=== PATIENT | male | born 1960 | race Caucasian/White ===

== ENCOUNTER 2021-11-01 12:14 | Observation (INO) | payer BC ==
[2021-11-01] MEDS ORDERED: Sodium Chloride 0.9% 10 ML Syringe FLUSH PRN (12:35)
[2021-11-01] MEDS ORDERED: Sodium Chloride 0.9% 2.5 ML Syringe FLUSH PRN (12:35)
--- NOTE | 2021-11-01 12:53 | EDM.PDOC ---
ED HPI GENERAL MEDICAL PROBLEM - General Chief Complaint: Cardiovascular Problem Stated Complaint: DIFFICULTY BREATHING Time Seen by Provider: 11/01/21 12:20 - History of Present Illness INITIAL COMMENTS - FREE TEXT/NARRATIVE: 61-year-old male presents complaining of shortness of breath since last night. He states that he had a total knee replaced about a week ago and then drove for 5 hours from [place] where he had his surgical procedure. He started having shortness of breath last night. Shortness of breath is worse when he was laying in bed he first noticed and now notices that he is winded when he goes to the bathroom. Patient is vaccinated against Covid. Patient has no chest pain. There is no increase in leg swelling. No history of blood clots. Patient states that he felt warm but there has been no fevers or productive sputum. Patient was seen in the outside clinic and thought he had some fluid a little bit on his lungs and was sent here for further evaluation and treatment. moderate symptoms knee Pain Score (Numeric/FACES): 3 - Related Data Allergies Allergy/AdvReac Type Severity Reaction Status Date / Time meloxicam [From Mobic] Allergy Severe Other Verified 11/02/21 07:52 Home Meds: Home Meds Acetaminophen/Codeine [Tylenol with Codeine No.3 300MG/30MG] 1 tab PO Q4HR PRN 11/01/21 [History] Aspirin/Calcium Carbonate/Mag [Bufferin 325 mg Tablet] 325 mg PO DAILY 11/01/21 [History] Colchicine 0.6 mg PO DAILY 11/01/21 [History] Gabapentin [Neurontin] 200 mg PO BID 11/01/21 [History] allopurinoL [Zyloprim] 100 mg PO DAILY 11/01/21 [History] Past Medical History - Past Health History Medical/Surgical History: Denies Medical/Surgical History - Infectious Disease History Infectious Disease History: Reports: Chicken Pox - Past Surgical History Other Musculoskeletal Surgeries/Procedures:: left knee surgery ED ROS GENERAL - Review of Systems Review Of Systems: See Below Constitutional: Reports: Chills. Denies: Fever HEENT: Reports: No Symptoms Respiratory: Reports: Shortness of Breath, Wheezing. Denies: Cough Cardiovascular: Reports: Dyspnea on Exertion. Denies: Chest Pain GI/Abdominal: Reports: No Symptoms : Reports: No Symptoms Musculoskeletal: Reports: Other (Recent knee surgery) Skin: Reports: No Symptoms Neurological: Reports: No Symptoms Hematologic/Lymphatic: Reports: No Symptoms ED EXAM, GENERAL - Physical Exam Exam: See Below Free Text/Narrative:: CONSTITUTIONAL: well appearing in no acute distress SKIN: Warm, dry, and intact without rash HENT: Normocephalic, atraumatic, PULMONARY: Lateral rales left greater than right. No marked jugular venous distention. No wheeze CARDIOVASCULAR: regular rate, No murmur, rubs, or gallops GASTROINTESTINAL: soft, nondistended, nontender NEUROLOGIC: normal speech, II-XII intact. light touch/5/5 power equal and symmetric in upper and lower extremities without deficit MUSCULOSKELETAL: No calf swelling or edema PSYCHIATRIC: normal mood and affect #1 Interpretation Time: 12:24 EKG Interpretation Comments: 103, sinus tachycardia, nonspecific ST/T findings Course - Vital Signs Text/Narrative:: Differential diagnosis: CHF, COPD, PE, pneumonia, Covid, other Presents complaining of shortness of breath. Patient has significant risk facto rs for PE with recent knee replacement and travel. CT scan is negative for PE but does show evidence of CHF. Patient was complaining of some shortness of breath when he lied down and reevaluation does show perhaps there is some elevation in jugular venous distention. Patient given nitro and Lasix. Patient be admitted for diuresis, echo and continue treatment and management Last Recorded V/S: Last Vital Signs Temp 2.3 C L 11/01/21 23:25 Pulse 103 H 11/01/21 23:25 Resp 16 11/01/21 23:25 BP 122/75 11/01/21 23:25 Pulse Ox 95 11/01/21 23:25 - Orders/Labs/Meds Orders: Active Orders 24 hr Category Date Time Status Cardiac Monitoring [RC] . DIRECTED Care 11/01/21 12:35 Active Pulse Oximetry [RC] ASDIRECTED Care 11/01/21 12:35 Active Echo Comp wo Cont [US] Stat Exams 11/02/21 Ordered CULTURE BLOOD [BC] Stat Lab 11/01/21 13:00 Received CULTURE BLOOD [BC] Stat Lab 11/01/21 13:08 Received Sodium Chloride 0.9% [Saline Flush] Med 11/01/21 12:35 Active 10 ml FLUSH ASDIRECTED PRN Sodium Chloride 0.9% [Saline Flush] Med 11/01/21 12:35 Active 2.5 ml FLUSH ASDIRECTED PRN Blood Culture x2 Reflex Set [OM.PC] Stat Ot 11/01/21 12:37 Ordered Saline Lock Insert [OM.PC] Stat Ot 11/01/21 12:35 Ordered Medication Orders Acetaminophen/Codeine Phosphate (Acetaminophen/Codeine 300-30 Mg Tab) 1 tab PO Q4HR PRN PRN Reason: Pain Last Admin: 11/01/21 22:40 Dose: 1 tab Documented by: TRISH Acetaminophen/Codeine Phosphate (Acetaminophen/Codeine 300-30 Mg Tab) 2 tab PO Q4HR PRN PRN Reason: Pain Enoxaparin Sodium (Enoxaparin 40 Mg/0.4 Ml Syringe) 40 mg SUBCUT Q24H [facility] Last Admin: 11/01/21 18:05 Dose: 40 mg Documented by: JACKSON Furosemide (Furosemide 20 Mg/2 Ml Vial) 20 mg IVPUSH DAILY SPENCER Gabapentin (Gabapentin 100 Mg Cap) 200 mg PO BID [facility] Last Admin: 11/01/21 23:27 Dose: 200 mg Documented by: TRISH Sodium Chloride (Sodium Chloride 0.9% 10 Ml Syringe) 10 ml FLUSH ASDIRECTED PRN PRN Reason: Keep Vein Open Last Admin: 11/01/21 13:25 Dose: 10 ml Documented by: JACKSON Sodium Chloride (Sodium Chloride 0.9% 2.5 Ml Syringe) 2.5 ml FLUSH ASDIRECTED PRN PRN Reason: Keep Vein Open Last Admin: 11/01/21 13:24 Dose: 2.5 ml Documented by: JACKSON Labs: Laboratory Tests 11/01/21 11/01/21 11/01/21 Range/Units 12:24 12:24 12:24 WBC 11.45 H (4.0-11.0) K/uL RBC 4.90 (4.50-5.90) M/uL Hgb 14.6 (13.0-17.0) g/dL Hct 43.2 (38.0-50.0) % MCV 88.2 (80.0-98.0) fL MCH 29.8 (27.0-32.0) pg MCHC 33.8 (31.0-37.0) g/dL RDW Std Deviation 44.1 (28.0-62.0) fl RDW Coeff of Leann 14 (11.0-15.0) % Plt Count 542 H (150-400) K/uL MPV 10.20 (7.40-12.00) fL Neut % (Auto) 80.3 H (48.0-80.0) % Lymph % (Auto) 12.3 L (16.0-40.0) % [place] % (Auto) 5.9 (0.0-15.0) % Eos % (Auto) 1.2 (0.0-7.0) % Baso % (Auto) 0.3 (0.0-1.5) % Neut # (Auto) 9.2 H (1.4-5.7) K/uL Lymph # (Auto) 1.4 (0.6-2.4) K/uL [place] # (Auto) 0.7 (0.0-0.8) K/uL Eos # (Auto) 0.1 (0.0-0.7) K/uL Baso # (Auto) 0.0 (0.0-0.1) K/uL Nucleated RBC % 0.0 /100WBC Nucleated RBCs # 0 K/uL INR D-Dimer, Quantitative (0.0-0.50) mg/L FEU Sodium 137 (136-148) mmol/L Potassium 4.0 (3.5-5.1) mmol/L Chloride 102 (98-107) mmol/L Carbon Dioxide 24.9 (21.0-32.0) mmol/L BUN 15 (7.0-18.0) mg/dL Creatinine 1.4 H (0.8-1.3) mg/dL Est Cr Clr Drug Dosing 62.36 mL/min Estimated GFR (MDRD) 51.9 ml/min Glucose 100 (74-106) mg/dL Lactic Acid (0.4-2.0) mmol/L Calcium 8.7 (8.5-10.1) mg/dL Total Bilirubin 0.8 (0.2-1.0) mg/dL AST 28 (15-37) IU/L ALT 55 (14-63) IU/L Alkaline Phosphatase 65 (46-116) U/L Troponin I < 0.050 (0.000-0.056) ng/mL C-Reactive Protein 1.60 H (0.00-0.90) mg/dL B-Natriuretic Peptide 266 H (<100) PG/ML Total Protein 7.7 (6.4-8.2) g/dL Albumin 3.6 (3.4-5.0) g/dL Globulin 4.1 H (2.6-4.0) g/dL Albumin/Globulin Ratio 0.9 (0.9-1.6) Urine Color Urine Appearance Urine pH (5.0-8.0) Ur Specific [place] (1.001-1.035) Urine Protein (NEGATIVE) mg/dL Urine Glucose (UA) (NEGATIVE) mg/dL Urine Ketones (NEGATIVE) mg/dL Urine Occult Blood (NEGATIVE) Urine Nitrite (NEGATIVE) Urine Bilirubin (NEGATIVE) Urine Urobilinogen (<2.0) EU/dL Ur Leukocyte Esterase (NEGATIVE) Urine RBC (0-2/HPF) Urine WBC (0-5/HPF) Ur Epithelial Cells (NONE-FEW) Urine Bacteria (NEGATIVE) SARS-CoV-2 RNA (AMANDA) (NEGATIVE) 11/01/21 11/01/21 11/01/21 Range/Units 12:24 12:51 12:53 WBC (4.0-11.0) K/uL RBC (4.50-5.90) M/uL Hgb (13.0-17.0) g/dL Hct (38.0-50.0) % MCV (80.0-98.0) fL MCH (27.0-32.0) pg MCHC (31.0-37.0) g/dL RDW Std Deviation (28.0-62.0) fl RDW Coeff of Leann (11.0-15.0) % Plt Count (150-400) K/uL MPV (7.40-12.00) fL Neut % (Auto) (48.0-80.0) % Lymph % (Auto) (16.0-40.0) % [place] % (Auto) (0.0-15.0) % Eos % (Auto) (0.0-7.0) % Baso % (Auto) (0.0-1.5) % Neut # (Auto) (1.4-5.7) K/uL Lymph # (Auto) (0.6-2.4) K/uL [place] # (Auto) (0.0-0.8) K/uL Eos # (Auto) (0.0-0.7) K/uL Baso # (Auto) (0.0-0.1) K/uL Nucleated RBC % /100WBC Nucleated RBCs # K/uL INR 1.03 D-Dimer, Quantitative 5.15 H (0.0-0.50) mg/L FEU Sodium (136-148) mmol/L Potassium (3.5-5.1) mmol/L Chloride (98-107) mmol/L Carbon Dioxide (21.0-32.0) mmol/L BUN (7.0-18.0) mg/dL Creatinine (0.8-1.3) mg/dL Est Cr Clr Drug Dosing mL/min Estimated GFR (MDRD) ml/min Glucose (74-106) mg/dL Lactic Acid (0.4-2.0) mmol/L Calcium (8.5-10.1) mg/dL Total Bilirubin (0.2-1.0) mg/dL AST (15-37) IU/L ALT (14-63) IU/L Alkaline Phosphatase (46-116) U/L Troponin I (0.000-0.056) ng/mL C-Reactive Protein (0.00-0.90) mg/dL B-Natriuretic Peptide (<100) PG/ML Total Protein (6.4-8.2) g/dL Albumin (3.4-5.0) g/dL Globulin (2.6-4.0) g/dL Albumin/Globulin Ratio (0.9-1.6) Urine Color YELLOW Urine Appearance CLEAR Urine pH 5.5 (5.0-8.0) Ur Specific [place] >= 1.030 (1.001-1.035) Urine Protein NEGATIVE (NEGATIVE) mg/dL Urine Glucose (UA) NEGATIVE (NEGATIVE) mg/dL Urine Ketones 15 H (NEGATIVE) mg/dL Urine Occult Blood SMALL H (NEGATIVE) Urine Nitrite NEGATIVE (NEGATIVE) Urine Bilirubin SMALL H (NEGATIVE) Urine Urobilinogen 0.2 (<2.0) EU/dL Ur Leukocyte Esterase NEGATIVE (NEGATIVE) Urine RBC 0-5 (0-2/HPF) Urine WBC 0-5 (0-5/HPF) Ur Epithelial Cells RARE (NONE-FEW) Urine Bacteria NOT SEEN (NEGATIVE) SARS-CoV-2 RNA (AMANDA) NEGATIVE (NEGATIVE) 11/01/21 Range/Units 13:00 WBC (4.0-11.0) K/uL RBC (4.50-5.90) M/uL Hgb (13.0-17.0) g/dL Hct (38.0-50.0) % MCV (80.0-98.0) fL MCH (27.0-32.0) pg MCHC (31.0-37.0) g/dL RDW Std Deviation (28.0-62.0) fl RDW Coeff of Leann (11.0-15.0) % Plt Count (150-400) K/uL MPV (7.40-12.00) fL Neut % (Auto) (48.0-80.0) % Lymph % (Auto) (16.0-40.0) % [place] % (Auto) (0.0-15.0) % Eos % (Auto) (0.0-7.0) % Baso % (Auto) (0.0-1.5) % Neut # (Auto) (1.4-5.7) K/uL Lymph # (Auto) (0.6-2.4) K/uL [place] # (Auto) (0.0-0.8) K/uL Eos # (Auto) (0.0-0.7) K/uL Baso # (Auto) (0.0-0.1) K/uL Nucleated RBC % /100WBC Nucleated RBCs # K/uL INR D-Dimer, Quantitative (0.0-0.50) mg/L FEU Sodium (136-148) mmol/L Potassium (3.5-5.1) mmol/L Chloride (98-107) mmol/L Carbon Dioxide (21.0-32.0) mmol/L BUN (7.0-18.0) mg/dL Creatinine (0.8-1.3) mg/dL Est Cr Clr Drug Dosing mL/min Estimated GFR (MDRD) ml/min Glucose (74-106) mg/dL Lactic Acid 0.9 (0.4-2.0) mmol/L Calcium (8.5-10.1) mg/dL Total Bilirubin (0.2-1.0) mg/dL AST (15-37) IU/L ALT (14-63) IU/L Alkaline Phosphatase (46-116) U/L Troponin I (0.000-0.056) ng/mL C-Reactive Protein (0.00-0.90) mg/dL B-Natriuretic Peptide (<100) PG/ML Total Protein (6.4-8.2) g/dL Albumin (3.4-5.0) g/dL Globulin (2.6-4.0) g/dL Albumin/Globulin Ratio (0.9-1.6) Urine Color Urine Appearance Urine pH (5.0-8.0) Ur Specific [place] (1.001-1.035) Urine Protein (NEGATIVE) mg/dL Urine Glucose (UA) (NEGATIVE) mg/dL Urine Ketones (NEGATIVE) mg/dL Urine Occult Blood (NEGATIVE) Urine Nitrite (NEGATIVE) Urine Bilirubin (NEGATIVE) Urine Urobilinogen (<2.0) EU/dL Ur Leukocyte Esterase (NEGATIVE) Urine RBC (0-2/HPF) Urine WBC (0-5/HPF) Ur Epithelial Cells (NONE-FEW) Urine Bacteria (NEGATIVE) SARS-CoV-2 RNA (AMANDA) (NEGATIVE) Meds: Medications Generic Name Dose Route Start Last Admin Trade Name Freq PRN Reason Stop Dose Admin Acetaminophen/Codeine Phosphate 1 tab 11/01/21 22:10 11/01/21 22:40 Acetaminophen/Codeine 300-30 Mg Tab PO 1 tab Q4HR PRN Administration Pain Acetaminophen/Codeine Phosphate 2 tab 11/02/21 08:03 Acetaminophen/Codeine 300-30 Mg Tab PO Q4HR PRN Pain Enoxaparin Sodium 40 mg 11/01/21 17:45 11/01/21 18:05 Enoxaparin 40 Mg/0.4 Ml Syringe SUBCUT 40 mg Q24H SPENCER Administration Furosemide 20 mg 11/02/21 09:00 Furosemide 20 Mg/2 Ml Vial IVPUSH DAILY SPENCER Gabapentin 200 mg 11/01/21 22:15 11/01/21 23:27 Gabapentin 100 Mg Cap PO 200 mg BID SPENCER Administration Sodium Chloride 10 ml 11/01/21 12:35 11/01/21 13:25 Sodium Chloride 0.9% 10 Ml Syringe FLUSH 10 ml ASDIRECTED PRN Administration Keep Vein Open Sodium Chloride 2.5 ml 11/01/21 12:35 11/01/21 13:24 Sodium Chloride 0.9% 2.5 Ml Syringe FLUSH 2.5 ml ASDIRECTED PRN Administration Keep Vein Open Discontinued Medications Generic Name Dose Route Start Last Admin Trade Name Freq PRN Reason Stop Dose Admin Acetaminophen/Codeine Phosphate 1 tab 11/01/21 16:28 11/01/21 16:42 Acetaminophen/Codeine 300-30 Mg Tab PO 11/01/21 16:29 1 tab ONETIME ONE Administration Acetaminophen/Codeine Phosphate 1 tab 11/01/21 17:32 Acetaminophen/Codeine 300-30 Mg Tab PO Q6H PRN Pain Furosemide 20 mg 11/01/21 16:47 11/01/21 17:27 Furosemide 40 Mg/4 Ml Vial IVPUSH 11/01/21 16:48 20 mg NOW ONE Administration Iopamidol 100 ml 11/01/21 14:32 11/01/21 14:33 Iopamidol 755 Mg/Ml 500 Ml Multipack Bottle IVPUSH 11/01/21 14:33 100 ml ONETIME STA Administration Nitroglycerin 1 gm 11/01/21 16:47 11/01/21 17:27 Nitroglycerin 2% Oint 1 Gm Ud Packet TOP 11/01/21 16:48 1 gm ONETIME ONE Administration Tramadol HCl Confirm 11/02/21 06:09 Tramadol 50 Mg Tab Administered 11/02/21 06:10 Dose 50 mg .ROUTE .STK-MED ONE Departure - Departure Time of Disposition: 18:00 Disposition: Admitted As Inpatient 68 Clinical Impression: CHF (congestive heart failure) - Discharge Information Sepsis Event Note (ED) - Evaluation Sepsis Screening Result: No Definite Risk - My Orders Last 24 Hours: My Active Orders 11/01/21 12:35 Cardiac Monitoring [RC] . DIRECTED Pulse Oximetry [RC] ASDIRECTED Sodium Chloride 0.9% [Saline Flush] 10 ml FLUSH ASDIRECTED PRN Sodium Chloride 0.9% [Saline Flush] 2.5 ml FLUSH ASDIRECTED PRN Saline Lock Insert [OM.PC] Stat 11/01/21 12:37 Blood Culture x2 Reflex Set [OM.PC] Stat 11/01/21 13:00 CULTURE BLOOD [BC] Stat 11/01/21 13:08 CULTURE BLOOD [BC] Stat - Assessment/Plan Last 24 Hours: My Active Orders 11/01/21 12:35 Cardiac Monitoring [RC] . DIRECTED Pulse Oximetry [RC] ASDIRECTED Sodium Chloride 0.9% [Saline Flush] 10 ml FLUSH ASDIRECTED PRN Sodium Chloride 0.9% [Saline Flush] 2.5 ml FLUSH ASDIRECTED PRN Saline Lock Insert [OM.PC] Stat 11/01/21 12:37 Blood Culture x2 Reflex Set [OM.PC] Stat 11/01/21 13:00 CULTURE BLOOD [BC] Stat 11/01/21 13:08 CULTURE BLOOD [BC] Stat
[2021-11-01 13:14] LABS: BLOOD UREA NITROGEN,BUN 15 mg/dL (7.0-18.0); CARBON DIOXIDE,CO2 24.9 mmol/L (21.0-32.0); CHLORIDE,CL 102 mmol/L (98-107); GLUCOSE RANDOM 100 mg/dL (74-106); SODIUM,NA 137 mmol/L (136-148)
[2021-11-01] MEDS ORDERED: Iopamidol 755 MG/ML 500 ML Multipack Bottle IVPUSH STA (14:32)
--- NOTE | 2021-11-01 15:17 | CT ---
INDICATION: Shortness of breath. Elevated D-dimer. Recent knee surgery. TECHNIQUE: CT chest PE was acquired with 100 cc Isovue 370 IV contrast. COMPARISON: None. FINDINGS: Heart and vasculature: Contrast opacification of the pulmonary arterial tree is adequate. No sign of pulmonary embolism. Moderate cardiomegaly with particular dilatation of the left ventricle and atrium.Great vessels are normal in caliber. Lungs and pleural: Diffuse interlobular septal thickening consistent with interstitial edema. Several small nodular ground-glass infiltrates also present. Small bilateral pleural effusions. No pneumothorax. Lymph nodes/mediastinum: No mediastinal, hilar, or axillary adenopathy. Chest wall: No masses. Upper abdomen: No acute or significant findings. Bones: Unremarkable for age. IMPRESSION: 1. No pulmonary embolism. 2. Congestive heart failure with cardiomegaly, diffuse interstitial edema, and small bilateral pleural effusions. 3. Small scattered nodular ground-glass infiltrates could represent pulmonary edema. However, COVID pneumonitis could have a similar appearance. Please note that all CT scans at this facility use dose modulation, iterative reconstruction, and/or weight-based dosing when appropriate to reduce radiation dose to as low as reasonably achievable. Dictated by Savage Morocho MD @ 11/01/2021 3:16:23 PM (Electronically Signed)
[2021-11-01] MEDS ORDERED: Acetaminophen/Codeine 300-30 MG Tab PO ONE (16:28)
[2021-11-01] MEDS ORDERED: Nitroglycerin 2% Oint 1 GM UD Packet TOP ONE (16:47)
[2021-11-01] MEDS ORDERED: Furosemide 40 MG/4 ML VIAL IVPUSH ONE (16:47)
[2021-11-01] MEDS ORDERED: Acetaminophen/Codeine 300-30 MG Tab PO PRN ×2 (17:32→22:10)
--- NOTE | 2021-11-01 17:39 | PCM.HP.2 ---
H&P History of Present Illness - General Date of Service: 11/01/21 Admit Problem/Dx: Admission Diagnosis/Problem Admission Diagnosis/Problem CHF, Congestive heart failure - History of Present Illness Initial Comments - Free Text/Narative: 61 yo male who presents with several day history of shortness of breath and cough productive of clear sputum. The shortness of breath is worse at night. In the ED he had a CT angio of the chest which was negative for PE but did reports cardiomegaly and pulmonary edema. PAtient had left knee replacement on October 21 at [facility]. Patient reports that he has recently lost alot of weight and his blood pressure has improved to 120s systolic. He reports he has gained 8 Lbs since the surgery. knee Pain Score (Numeric/FACES): 3 - Related Data Allergies/Adverse Reactions: Allergies Allergy/AdvReac Type Severity Reaction Status Date / Time meloxicam [From [email or web address]] Allergy Severe Other Verified 11/02/21 07:52 Home Medications: Home Meds Acetaminophen/Codeine [Tylenol with Codeine No.3 300MG/30MG] 1 tab PO Q4HR PRN 11/01/21 [History] Aspirin/Calcium Carbonate/Mag [Bufferin 325 mg Tablet] 325 mg PO DAILY 11/01/21 [History] Colchicine 0.6 mg PO DAILY 11/01/21 [History] Gabapentin [Neurontin] 200 mg PO BID 11/01/21 [History] allopurinoL [Zyloprim] 100 mg PO DAILY 11/01/21 [History] Furosemide [Lasix] 20 mg PO DAILY 7 Days #7 tab 11/02/21 [Rx] Past Medical History - Past Health History Medical/Surgical History: Denies Medical/Surgical History - Infectious Disease History Infectious Disease History: Reports: Chicken Pox - Past Surgical History Other Musculoskeletal Surgeries/Procedures:: left knee surgery H&P Review of Systems - Review of Systems: Review Of Systems: Comprehensive ROS is negative, except as noted in HPI. Exam - Exam Exam: See Below - Vital Signs Vital Signs: Last Vital Signs Temp 36.1 C 11/01/21 12:21 Pulse 100 11/01/21 15:44 Resp 18 11/01/21 15:44 BP 144/86 H 11/01/21 15:44 Pulse Ox 97 11/01/21 15:44 Weight: 97.976 kg - Exam General: Alert, Oriented HEENT: Mucosa Moist & [place] Neck: Supple Lungs: Clear to Auscultation, Normal Respiratory Effort Cardiovascular: Regular Rate, Regular Rhythm GI/Abdominal Exam: Normal Bowel Sounds, Soft, Non-Tender Extremities: Non-Tender, No Pedal Edema Skin: Warm, Dry, Intact Neurological: No: Focal Deficit - Patient Data Lab Results Last 24 hrs: Laboratory Results - last 24 hr 11/01/21 11/01/21 11/01/21 Range/Units 12:24 12:24 12:24 WBC 11.45 H (4.0-11.0) K/uL RBC 4.90 (4.50-5.90) M/uL Hgb 14.6 (13.0-17.0) g/dL Hct 43.2 (38.0-50.0) % MCV 88.2 (80.0-98.0) fL MCH 29.8 (27.0-32.0) pg MCHC 33.8 (31.0-37.0) g/dL RDW Std Deviation 44.1 (28.0-62.0) fl RDW Coeff of Leann 14 (11.0-15.0) % Plt Count 542 H (150-400) K/uL MPV 10.20 (7.40-12.00) fL Neut % (Auto) 80.3 H (48.0-80.0) % Lymph % (Auto) 12.3 L (16.0-40.0) % [place] % (Auto) 5.9 (0.0-15.0) % Eos % (Auto) 1.2 (0.0-7.0) % Baso % (Auto) 0.3 (0.0-1.5) % Neut # (Auto) 9.2 H (1.4-5.7) K/uL Lymph # (Auto) 1.4 (0.6-2.4) K/uL [place] # (Auto) 0.7 (0.0-0.8) K/uL Eos # (Auto) 0.1 (0.0-0.7) K/uL Baso # (Auto) 0.0 (0.0-0.1) K/uL Nucleated RBC % 0.0 /100WBC Nucleated RBCs # 0 K/uL INR 1.03 D-Dimer, Quantitative 5.15 H (0.0-0.50) mg/L FEU Sodium 137 (136-148) mmol/L Potassium 4.0 (3.5-5.1) mmol/L Chloride 102 (98-107) mmol/L Carbon Dioxide 24.9 (21.0-32.0) mmol/L BUN 15 (7.0-18.0) mg/dL Creatinine 1.4 H (0.8-1.3) mg/dL Est Cr Clr Drug Dosing 62.36 mL/min Estimated GFR (MDRD) 51.9 ml/min Glucose 100 (74-106) mg/dL Lactic Acid (0.4-2.0) mmol/L Calcium 8.7 (8.5-10.1) mg/dL Total Bilirubin 0.8 (0.2-1.0) mg/dL AST 28 (15-37) IU/L ALT 55 (14-63) IU/L Alkaline Phosphatase 65 (46-116) U/L Troponin I < 0.050 (0.000-0.056) ng/mL C-Reactive Protein 1.60 H (0.00-0.90) mg/dL Total Protein 7.7 (6.4-8.2) g/dL Albumin 3.6 (3.4-5.0) g/dL Globulin 4.1 H (2.6-4.0) g/dL Albumin/Globulin Ratio 0.9 (0.9-1.6) Urine Color Urine Appearance Urine pH (5.0-8.0) Ur Specific [place] (1.001-1.035) Urine Protein (NEGATIVE) mg/dL Urine Glucose (UA) (NEGATIVE) mg/dL Urine Ketones (NEGATIVE) mg/dL Urine Occult Blood (NEGATIVE) Urine Nitrite (NEGATIVE) Urine Bilirubin (NEGATIVE) Urine Urobilinogen (<2.0) EU/dL Ur Leukocyte Esterase (NEGATIVE) Urine RBC (0-2/HPF) Urine WBC (0-5/HPF) Ur Epithelial Cells (NONE-FEW) Urine Bacteria (NEGATIVE) SARS-CoV-2 RNA (AMANDA) (NEGATIVE) 11/01/21 11/01/21 11/01/21 Range/Units 12:51 12:53 13:00 WBC (4.0-11.0) K/uL RBC (4.50-5.90) M/uL Hgb (13.0-17.0) g/dL Hct (38.0-50.0) % MCV (80.0-98.0) fL MCH (27.0-32.0) pg MCHC (31.0-37.0) g/dL RDW Std Deviation (28.0-62.0) fl RDW Coeff of Leann (11.0-15.0) % Plt Count (150-400) K/uL MPV (7.40-12.00) fL Neut % (Auto) (48.0-80.0) % Lymph % (Auto) (16.0-40.0) % [place] % (Auto) (0.0-15.0) % Eos % (Auto) (0.0-7.0) % Baso % (Auto) (0.0-1.5) % Neut # (Auto) (1.4-5.7) K/uL Lymph # (Auto) (0.6-2.4) K/uL [place] # (Auto) (0.0-0.8) K/uL Eos # (Auto) (0.0-0.7) K/uL Baso # (Auto) (0.0-0.1) K/uL Nucleated RBC % /100WBC Nucleated RBCs # K/uL INR D-Dimer, Quantitative (0.0-0.50) mg/L FEU Sodium (136-148) mmol/L Potassium (3.5-5.1) mmol/L Chloride (98-107) mmol/L Carbon Dioxide (21.0-32.0) mmol/L BUN (7.0-18.0) mg/dL Creatinine (0.8-1.3) mg/dL Est Cr Clr Drug Dosing mL/min Estimated GFR (MDRD) ml/min Glucose (74-106) mg/dL Lactic Acid 0.9 (0.4-2.0) mmol/L Calcium (8.5-10.1) mg/dL Total Bilirubin (0.2-1.0) mg/dL AST (15-37) IU/L ALT (14-63) IU/L Alkaline Phosphatase (46-116) U/L Troponin I (0.000-0.056) ng/mL C-Reactive Protein (0.00-0.90) mg/dL Total Protein (6.4-8.2) g/dL Albumin (3.4-5.0) g/dL Globulin (2.6-4.0) g/dL Albumin/Globulin Ratio (0.9-1.6) Urine Color YELLOW Urine Appearance CLEAR Urine pH 5.5 (5.0-8.0) Ur Specific [place] >= 1.030 (1.001-1.035) Urine Protein NEGATIVE (NEGATIVE) mg/dL Urine Glucose (UA) NEGATIVE (NEGATIVE) mg/dL Urine Ketones 15 H (NEGATIVE) mg/dL Urine Occult Blood SMALL H (NEGATIVE) Urine Nitrite NEGATIVE (NEGATIVE) Urine Bilirubin SMALL H (NEGATIVE) Urine Urobilinogen 0.2 (<2.0) EU/dL Ur Leukocyte Esterase NEGATIVE (NEGATIVE) Urine RBC 0-5 (0-2/HPF) Urine WBC 0-5 (0-5/HPF) Ur Epithelial Cells RARE (NONE-FEW) Urine Bacteria NOT SEEN (NEGATIVE) SARS-CoV-2 RNA (AMANDA) NEGATIVE (NEGATIVE) Result Diagrams: 11/02/21 05:15 11/02/21 05:15 Sepsis Event Note - Evaluation Sepsis Screening Result: No Definite Risk - Focused Exam Vital Signs: Vital Signs Temp Pulse Resp BP Pulse Ox 11/01/21 15:44 100 18 144/86 H 97 11/01/21 14:45 18 143/96 H 97 11/01/21 14:15 18 145/97 H 97 11/01/21 13:18 107 H 18 140/98 H 98 11/01/21 12:50 99 18 143/103 H 97 11/01/21 12:21 36.1 C 108 H 20 148/101 H 96 11/01/21 12:20 109 H 18 148/101 H 97 - Problem List (1) CHF (congestive heart failure) SNOMED Code(s): 49245673 ICD Code: I50.9 - HEART FAILURE, UNSPECIFIED Status: Acute Problem List Initiated/Reviewed/Updated: Yes Orders Last 24hrs: Active Orders 24 hr Category Date Time Status Admission Status [Patient Status] [ADT] Stat ADT 11/01/21 16:48 Active Cardiac Monitoring [RC] . DIRECTED Care 11/01/21 12:35 Active Oxygen Therapy [RC] PRN Care 11/01/21 17:33 Ordered Pulse Oximetry [RC] ASDIRECTED Care 11/01/21 12:35 Active Up ad Ghada [RC] ASDIRECTED Care 11/01/21 17:33 Ordered VTE/DVT Education [RC] PER UNIT ROUTINE Care 11/01/21 17:33 Ordered Vital Signs [RC] Q4H Care 11/01/21 17:33 Ordered Regular Diet [DIET] Diet 11/01/21 Breakfast Ordered Echo Comp wo Cont [US] Stat Exams 11/01/21 16:25 Ordered Venous Doppler Lwr Ext Bi [US] Stat Exams 11/01/21 17:32 Ordered B-TYPE NATRIURETIC PEPTIDE,BNP [CHEM] Stat Lab 11/01/21 12:24 Received BASIC METABOLIC PANEL,BMP [CHEM] AM Lab 11/02/21 05:11 Ordered CBC WITH AUTO DIFF [HEME] AM Lab 11/02/21 05:11 Ordered CULTURE BLOOD [BC] Stat Lab 11/01/21 13:00 Received CULTURE BLOOD [BC] Stat Lab 11/01/21 13:08 Received Acetaminophen/Codeine [Tylenol with Codeine No.3 300MG/ Med 11/01/21 17:32 Ordered 30MG] 1 tab PO Q6H PRN Enoxaparin [Lovenox] Med 11/01/21 17:45 Ordered 40 mg SUBCUT Q24H Sodium Chloride 0.9% [Saline Flush] Med 11/01/21 12:35 Active 10 ml FLUSH ASDIRECTED PRN Sodium Chloride 0.9% [Saline Flush] Med 11/01/21 12:35 Active 2.5 ml FLUSH ASDIRECTED PRN Blood Culture x2 Reflex Set [OM.PC] Stat Oth 11/01/21 12:37 Ordered Saline Lock Insert [OM.PC] Stat Oth 11/01/21 12:35 Ordered Resuscitation Status Routine Resus Stat 11/01/21 17:33 Ordered Medication Orders Acetaminophen/Codeine Phosphate (Acetaminophen/Codeine 300-30 Mg Tab) 1 tab PO Q6H PRN PRN Reason: Pain Sodium Chloride (Sodium Chloride 0.9% 10 Ml Syringe) 10 ml FLUSH ASDIRECTED PRN PRN Reason: Keep Vein Open Last Admin: 11/01/21 13:25 Dose: 10 ml Documented by: PETRKAT Sodium Chloride (Sodium Chloride 0.9% 2.5 Ml Syringe) 2.5 ml FLUSH ASDIRECTED PRN PRN Reason: Keep Vein Open Last Admin: 11/01/21 13:24 Dose: 2.5 ml Documented by: JCAKSON Assessment/Plan Comment:: 61 yo male admitted for new onset cognestive heart failure. CHF: will diuresis with lasix, Echocardiogram ordred.
[2021-11-01] MEDS ORDERED: Enoxaparin 40 MG/0.4 ML Syringe SUBCUT SCH (17:45)
--- NOTE | 2021-11-01 22:48 | US ---
INDICATION: Elevated D-dimer, recent left TKA TECHNIQUE: A compression venous ultrasound exam was performed of both lower extremities using new-scale imaging, color Doppler and spectral Doppler analysis. COMPARISON: None FINDINGS: On the right, The common femoral vein is compressible and demonstrates normal phasic flow with augmentation. The deep femoral vein is compressible with flow demonstrated by color Doppler. The superficial femoral vein and popliteal vein are compressible and demonstrate normal phasic flow with augmentation. Flow is demonstrated in the anterior and posterior tibial veins. On the left, the common femoral vein is compressible and demonstrates normal phasic flow with augmentation. The deep femoral vein is compressible with flow demonstrated by color Doppler. The superficial femoral vein and popliteal vein are compressible and demonstrate normal phasic flow with augmentation. Flow is demonstrated in the posterior tibial, anterior tibial, and peroneal veins. IMPRESSION: No evidence of lower extremity deep venous thrombosis. Dictated by Gita Conklin MD @ 11/01/2021 10:47:11 PM (Electronically Signed)
[2021-11-01] MEDS: Gabapentin 100 MG Cap PO SCH (23:27)
[2021-11-02] MEDS ORDERED: traMADol 50 MG Tab ONE (06:09)
[2021-11-02 07:15] LABS: CARBON DIOXIDE,CO2 26.7 mmol/L (21.0-32.0)
[2021-11-02] MEDS: Acetaminophen/Codeine 300-30 MG Tab PO PRN ×2 (08:28→12:45)
[2021-11-02] MEDS: Gabapentin 100 MG Cap PO SCH (08:31)
[2021-11-02] MEDS ORDERED: Furosemide 20 MG/2 ML VIAL IVPUSH SCH (09:00)
[2021-11-02] MEDS ORDERED: Allopurinol 100 MG Tab PO SCH (10:45)
[2021-11-02] MEDS ORDERED: Colchicine 0.6 MG Tab PO SCH (10:45)
--- NOTE | 2021-11-02 12:39 | PCM.DCSUM1 ---
Discharge Summary - Hospital Course Free Text/Narrative:: 61-year-old male with recent total left knee replacement on 10/21/2021 presented to the ER with complaints of 3 days of shortness of breath and productive cough with clear sputum. Patient complained of orthopnea. CT angiography of the chest was negative for pulmonary embolism but did report cardiomegaly and pulmonary edema. Patient complained of 8 pound weight gain over the last 10 days. Patient was given IV Lasix and symptoms improved significantly. E chocardiogram was performed results pending. Patient stable and will be discharged on 7 days of Lasix 20 mg daily. Patient will follow up with primary care regarding continuing this medication. Patient does not smoke. Denies alcohol use. Denies illicit drug use. No history of CHF or pulmonary edema. Patient's father had COPD and CHF. - Discharge Data Discharge Date: 11/02/21 Discharge Disposition: Home, Self-Care 01 Condition: Stable - Referral to Home Health Primary Care Physician: Nigel Dawson MD - Patient Instructions Diet: Low Sodium Activity: As Tolerated Other/Special Instructions: If you experience chest pain, palpitations, difficulty breathing, difficulty laying flat, sudden increased swelling in your legs please seek medical attention immediately. You have been given a prescription for Lasix 20 mg. Please take 1 tablet daily for 7 days. Please speak with your primary care provider regarding continuing this medication. Please follow-up with primary care regarding your echocardiogram results. - Discharge Plan *PRESCRIPTION DRUG MONITORING PROGRAM REVIEWED*: Not Applicable *COPY OF PRESCRIPTION DRUG MONITORING REPORT IN PATIENT JUWAN: Not Applicable Prescriptions/Med Rec: Furosemide [Lasix] 20 mg PO DAILY 7 Days #7 tab Home Medications: Home Meds Acetaminophen/Codeine [Tylenol with Codeine No.3 300MG/30MG] 1 tab PO Q4HR PRN 11/01/21 [History] Aspirin/Calcium Carbonate/Mag [Bufferin 325 mg Tablet] 325 mg PO DAILY 11/01/21 [History] Colchicine 0.6 mg PO DAILY 11/01/21 [History] Gabapentin [Neurontin] 200 mg PO BID 11/01/21 [History] allopurinoL [Zyloprim] 100 mg PO DAILY 11/01/21 [History] Furosemide [Lasix] 20 mg PO DAILY 7 Days #7 tab 11/02/21 [Rx] Patient Handouts: Heart Failure, Self-Care, [id number], Heart Failure, Diagnosis, [id number], Living With Heart Failure, Heart Failure and Exercise, Heart Failure Eating Plan Referrals: Jose Luis Guerra MD [Ordering Only Provider] - 11/07/21 1:45 pm - Discharge Summary/Plan Comment DC Time >30 min.: Yes Total # of Minutes for Discharge Time: 45 - General Info Admission Dx/Problem (Free Text: Admission Diagnosis/Problem Admission Diagnosis/Problem CHF, Congestive heart failure - Review of Systems General: Denies: Fever, Chills HEENT: Denies: Headaches, Visual Changes Pulmonary: Denies: Shortness of Breath, Pleuritic Chest Pain, Cough, Sputum, Wheezing Cardiovascular: Denies: Chest Pain, Palpitations, Dyspnea on Exertion, Orthopnea, Edema Gastrointestinal: Denies: Abdominal Pain, Constipation, Nausea, Vomiting Genitourinary: Denies: Dysuria Musculoskeletal: Reports: Joint Pain. Denies: Neck Pain Skin: Denies: Rash Neurological: Denies: Confusion - Patient Data Vitals - Most Recent: Last Vital Signs Temp 96.3 F L 11/02/21 08:00 Pulse 94 11/02/21 08:00 Resp 22 H 11/02/21 08:00 BP 119/77 11/02/21 08:00 Pulse Ox 95 11/02/21 08:00 Weight - Most Recent: 212 lb Lab Results - Last 24 hrs: Laboratory Results - last 24 hr 11/01/21 11/01/21 11/01/21 Range/Units 12:24 12:24 12:24 WBC 11.45 H (4.0-11.0) K/uL RBC 4.90 (4.50-5.90) M/uL Hgb 14.6 (13.0-17.0) g/dL Hct 43.2 (38.0-50.0) % MCV 88.2 (80.0-98.0) fL MCH 29.8 (27.0-32.0) pg MCHC 33.8 (31.0-37.0) g/dL RDW Std Deviation 44.1 (28.0-62.0) fl RDW Coeff of Leann 14 (11.0-15.0) % Plt Count 542 H (150-400) K/uL MPV 10.20 (7.40-12.00) fL Neut % (Auto) 80.3 H (48.0-80.0) % Lymph % (Auto) 12.3 L (16.0-40.0) % [place] % (Auto) 5.9 (0.0-15.0) % Eos % (Auto) 1.2 (0.0-7.0) % Baso % (Auto) 0.3 (0.0-1.5) % Neut # (Auto) 9.2 H (1.4-5.7) K/uL Lymph # (Auto) 1.4 (0.6-2.4) K/uL [place] # (Auto) 0.7 (0.0-0.8) K/uL Eos # (Auto) 0.1 (0.0-0.7) K/uL Baso # (Auto) 0.0 (0.0-0.1) K/uL Nucleated RBC % 0.0 /100WBC Nucleated RBCs # 0 K/uL INR D-Dimer, Quantitative (0.0-0.50) mg/L FEU Sodium 137 (136-148) mmol/L Potassium 4.0 (3.5-5.1) mmol/L Chloride 102 (98-107) mmol/L Carbon Dioxide 24.9 (21.0-32.0) mmol/L BUN 15 (7.0-18.0) mg/dL Creatinine 1.4 H (0.8-1.3) mg/dL Est Cr Clr Drug Dosing 62.36 mL/min Estimated GFR (MDRD) 51.9 ml/min Glucose 100 (74-106) mg/dL Lactic Acid (0.4-2.0) mmol/L Calcium 8.7 (8.5-10.1) mg/dL Total Bilirubin 0.8 (0.2-1.0) mg/dL AST 28 (15-37) IU/L ALT 55 (14-63) IU/L Alkaline Phosphatase 65 (46-116) U/L Troponin I < 0.050 (0.000-0.056) ng/mL C-Reactive Protein 1.60 H (0.00-0.90) mg/dL B-Natriuretic Peptide 266 H (<100) PG/ML Total Protein 7.7 (6.4-8.2) g/dL Albumin 3.6 (3.4-5.0) g/dL Globulin 4.1 H (2.6-4.0) g/dL Albumin/Globulin Ratio 0.9 (0.9-1.6) Urine Color Urine Appearance Urine pH (5.0-8.0) Ur Specific [place] (1.001-1.035) Urine Protein (NEGATIVE) mg/dL Urine Glucose (UA) (NEGATIVE) mg/dL Urine Ketones (NEGATIVE) mg/dL Urine Occult Blood (NEGATIVE) Urine Nitrite (NEGATIVE) Urine Bilirubin (NEGATIVE) Urine Urobilinogen (<2.0) EU/dL Ur Leukocyte Esterase (NEGATIVE) Urine RBC (0-2/HPF) Urine WBC (0-5/HPF) Ur Epithelial Cells (NONE-FEW) Urine Bacteria (NEGATIVE) SARS-CoV-2 RNA (AMANDA) (NEGATIVE) 11/01/21 11/01/21 11/01/21 Range/Units 12:24 12:51 12:53 WBC (4.0-11.0) K/uL RBC (4.50-5.90) M/uL Hgb (13.0-17.0) g/dL Hct (38.0-50.0) % MCV (80.0-98.0) fL MCH (27.0-32.0) pg MCHC (31.0-37.0) g/dL RDW Std Deviation (28.0-62.0) fl RDW Coeff of Leann (11.0-15.0) % Plt Count (150-400) K/uL MPV (7.40-12.00) fL Neut % (Auto) (48.0-80.0) % Lymph % (Auto) (16.0-40.0) % [place] % (Auto) (0.0-15.0) % Eos % (Auto) (0.0-7.0) % Baso % (Auto) (0.0-1.5) % Neut # (Auto) (1.4-5.7) K/uL Lymph # (Auto) (0.6-2.4) K/uL [place] # (Auto) (0.0-0.8) K/uL Eos # (Auto) (0.0-0.7) K/uL Baso # (Auto) (0.0-0.1) K/uL Nucleated RBC % /100WBC Nucleated RBCs # K/uL INR 1.03 D-Dimer, Quantitative 5.15 H (0.0-0.50) mg/L FEU Sodium (136-148) mmol/L Potassium (3.5-5.1) mmol/L Chloride (98-107) mmol/L Carbon Dioxide (21.0-32.0) mmol/L BUN (7.0-18.0) mg/dL Creatinine (0.8-1.3) mg/dL Est Cr Clr Drug Dosing mL/min Estimated GFR (MDRD) ml/min Glucose (74-106) mg/dL Lactic Acid (0.4-2.0) mmol/L Calcium (8.5-10.1) mg/dL Total Bilirubin (0.2-1.0) mg/dL AST (15-37) IU/L ALT (14-63) IU/L Alkaline Phosphatase (46-116) U/L Troponin I (0.000-0.056) ng/mL C-Reactive Protein (0.00-0.90) mg/dL B-Natriuretic Peptide (<100) PG/ML Total Protein (6.4-8.2) g/dL Albumin (3.4-5.0) g/dL Globulin (2.6-4.0) g/dL Albumin/Globulin Ratio (0.9-1.6) Urine Color YELLOW Urine Appearance CLEAR Urine pH 5.5 (5.0-8.0) Ur Specific [place] >= 1.030 (1.001-1.035) Urine Protein NEGATIVE (NEGATIVE) mg/dL Urine Glucose (UA) NEGATIVE (NEGATIVE) mg/dL Urine Ketones 15 H (NEGATIVE) mg/dL Urine Occult Blood SMALL H (NEGATIVE) Urine Nitrite NEGATIVE (NEGATIVE) Urine Bilirubin SMALL H (NEGATIVE) Urine Urobilinogen 0.2 (<2.0) EU/dL Ur Leukocyte Esterase NEGATIVE (NEGATIVE) Urine RBC 0-5 (0-2/HPF) Urine WBC 0-5 (0-5/HPF) Ur Epithelial Cells RARE (NONE-FEW) Urine Bacteria NOT SEEN (NEGATIVE) SARS-CoV-2 RNA (AMANDA) NEGATIVE (NEGATIVE) 11/01/21 11/02/21 11/02/21 Range/Units 13:00 05:15 05:15 WBC 8.35 (4.0-11.0) K/uL RBC 4.58 (4.50-5.90) M/uL Hgb 13.4 (13.0-17.0) g/dL Hct 39.8 (38.0-50.0) % MCV 86.9 (80.0-98.0) fL MCH 29.3 (27.0-32.0) pg MCHC 33.7 (31.0-37.0) g/dL RDW Std Deviation 42.6 (28.0-62.0) fl RDW Coeff of Leann 14 (11.0-15.0) % Plt Count 483 H (150-400) K/uL MPV 10.00 (7.40-12.00) fL Neut % (Auto) 73.8 (48.0-80.0) % Lymph % (Auto) 14.3 L (16.0-40.0) % [place] % (Auto) 9.8 (0.0-15.0) % Eos % (Auto) 1.7 (0.0-7.0) % Baso % (Auto) 0.4 (0.0-1.5) % Neut # (Auto) 6.2 H (1.4-5.7) K/uL Lymph # (Auto) 1.2 (0.6-2.4) K/uL [place] # (Auto) 0.8 (0.0-0.8) K/uL Eos # (Auto) 0.1 (0.0-0.7) K/uL Baso # (Auto) 0.0 (0.0-0.1) K/uL Nucleated RBC % 0.0 /100WBC Nucleated RBCs # 0 K/uL INR D-Dimer, Quantitative (0.0-0.50) mg/L FEU Sodium 139 (136-148) mmol/L Potassium 4.0 (3.5-5.1) mmol/L Chloride 104 (98-107) mmol/L Carbon Dioxide 26.7 (21.0-32.0) mmol/L BUN 19 H (7.0-18.0) mg/dL Creatinine 1.4 H (0.8-1.3) mg/dL Est Cr Clr Drug Dosing 62.36 mL/min Estimated GFR (MDRD) 51.9 ml/min Glucose 119 H (74-106) mg/dL Lactic Acid 0.9 (0.4-2.0) mmol/L Calcium 8.4 L (8.5-10.1) mg/dL Total Bilirubin (0.2-1.0) mg/dL AST (15-37) IU/L ALT (14-63) IU/L Alkaline Phosphatase (46-116) U/L Troponin I (0.000-0.056) ng/mL C-Reactive Protein (0.00-0.90) mg/dL B-Natriuretic Peptide (<100) PG/ML Total Protein (6.4-8.2) g/dL Albumin (3.4-5.0) g/dL Globulin (2.6-4.0) g/dL Albumin/Globulin Ratio (0.9-1.6) Urine Color Urine Appearance Urine pH (5.0-8.0) Ur Specific [place] (1.001-1.035) Urine Protein (NEGATIVE) mg/dL Urine Glucose (UA) (NEGATIVE) mg/dL Urine Ketones (NEGATIVE) mg/dL Urine Occult Blood (NEGATIVE) Urine Nitrite (NEGATIVE) Urine Bilirubin (NEGATIVE) Urine Urobilinogen (<2.0) EU/dL Ur Leukocyte Esterase (NEGATIVE) Urine RBC (0-2/HPF) Urine WBC (0-5/HPF) Ur Epithelial Cells (NONE-FEW) Urine Bacteria (NEGATIVE) SARS-CoV-2 RNA (AMANDA) (NEGATIVE) Med Orders - Current: Current Medications Acetaminophen/Codeine Phosphate (Acetaminophen/Codeine 300-30 Mg Tab) 1 tab PO Q4HR PRN PRN Reason: Pain Last Admin: 11/01/21 22:40 Dose: 1 tab Documented by: Acetaminophen/Codeine Phosphate (Acetaminophen/Codeine 300-30 Mg Tab) 2 tab PO Q4HR PRN PRN Reason: Pain Last Admin: 11/02/21 08:28 Dose: 2 tab Documented by: Allopurinol (Allopurinol 100 Mg Tab) 100 mg PO DAILY [facility] Last Admin: 11/02/21 11:15 Dose: 100 mg Documented by: Colchicine (Colchicine 0.6 Mg Tab) 0.6 mg PO DAILY [facility] Last Admin: 11/02/21 11:15 Dose: 0.6 mg Documented by: Enoxaparin Sodium (Enoxaparin 40 Mg/0.4 Ml Syringe) 40 mg SUBCUT Q24H [facility] Last Admin: 11/01/21 18:05 Dose: 40 mg Documented by: Furosemide (Furosemide 20 Mg/2 Ml Vial) 20 mg IVPUSH DAILY [facility] Last Admin: 11/02/21 08:28 Dose: 20 mg Documented by: Gabapentin (Gabapentin 100 Mg Cap) 200 mg PO BID [facility] Last Admin: 11/02/21 08:31 Dose: 200 mg Documented by: Sodium Chloride (Sodium Chloride 0.9% 10 Ml Syringe) 10 ml FLUSH ASDIRECTED PRN PRN Reason: Keep Vein Open Last Admin: 11/01/21 13:25 Dose: 10 ml Documented by: Sodium Chloride (Sodium Chloride 0.9% 2.5 Ml Syringe) 2.5 ml FLUSH ASDIRECTED PRN PRN Reason: Keep Vein Open Last Admin: 11/01/21 13:24 Dose: 2.5 ml Documented by: Discontinued Medications Acetaminophen/Codeine Phosphate (Acetaminophen/Codeine 300-30 Mg Tab) 1 tab PO ONETIME ONE Stop: 11/01/21 16:29 Last Admin: 11/01/21 16:42 Dose: 1 tab Documented by: Acetaminophen/Codeine Phosphate (Acetaminophen/Codeine 300-30 Mg Tab) 1 tab PO Q6H PRN PRN Reason: Pain Furosemide (Furosemide 40 Mg/4 Ml Vial) 20 mg IVPUSH NOW ONE Stop: 11/01/21 16:48 Last Admin: 11/01/21 17:27 Dose: 20 mg Documented by: Iopamidol (Iopamidol 755 Mg/Ml 500 Ml Multipack Bottle) 100 ml IVPUSH ONETIME STA Stop: 11/01/21 14:33 Last Admin: 11/01/21 14:33 Dose: 100 ml Documented by: Nitroglycerin (Nitroglycerin 2% Oint 1 Gm Ud Packet) 1 gm TOP ONETIME ONE Stop: 11/01/21 16:48 Last Admin: 11/01/21 17:27 Dose: 1 gm Documented by: Tramadol HCl (Tramadol 50 Mg Tab) Confirm Administered Dose 50 mg .ROUTE .STK- MED ONE Stop: 11/02/21 06:10 Last Admin: 11/02/21 09:54 Dose: Not Given Documented by: - Exam General: Reports: Alert, Oriented, Cooperative, No Acute Distress HEENT: Reports: Pupils Equal, Pupils Reactive, EOMI Neck: Reports: Supple, Trachea Midline, No JVD Lungs: Reports: Clear to Auscultation, Normal Respiratory Effort. Denies: Cr ackles, Wheezing Cardiovascular: Reports: Regular Rate, Regular Rhythm. Denies: Murmurs, Gallops GI/Abdominal Exam: Normal Bowel Sounds, Soft, Non-Tender Back Exam: Reports: Normal Inspection Extremities: Normal Inspection, Normal Range of Motion, No Pedal Edema Skin: Reports: Warm, Dry, Intact Wound/Incisions: Reports: Healing Well, No Drainage Neurological: Reports: No New Focal Deficit
--- NOTE | 2021-11-07 09:38 | ECHO ---
EXAM DATE: 11/01/21 PATIENT'S AGE: 61 The ECHO report has been scanned into [employer] and can be seen in this patient's EMR (Electronic Medical Record) under the REPORTS section. The report has also been scanned into PACS. [id number]
== END 2021-11-02 15:05 | disposition home or self-care (01) ==
LOC: MW.ED 12:14 → OBSVTOIN 16:48 → MW.MS 16:48 → INTOOBSV 16:48
PROVIDERS: ADMIT Internal Medicine; ATTEND Internal Medicine
DX: I50.1 Left ventricular failure, unspecified (principal); I51.7 Cardiomegaly; Z88.8 Allergy status to other drugs, medicaments and biological substances; Z79.899 Other long term (current) drug therapy; Z79.82 Long term (current) use of aspirin; Z98.890 Other specified postprocedural states; Z20.822 Contact with and (suspected) exposure to COVID-19
CPT/HCPCS: 36415; 71275; 80048; 80053; 81001; 83605; 83880; 84484; 85025; 85379; 85610; 86140; 87040; 87635; 93306; 93970; 96374; 99285; A9270; J1650; J1940; Q9967; U0002

== ENCOUNTER 2022-06-05 09:21 | Day surgery (SDC) | payer BC ==
[~2022-06-05 09:21] MED LIST: Lactated Ringers 1,000 ML IV SCH
[2022-06-05] MEDS ORDERED: propofoL 50 ML ONE (10:10)
[2022-06-05] MEDS ORDERED: Lidocaine 2% 5 ML SDV ONE (10:27)
[2022-06-05] MEDS ORDERED: fentaNYL 100 MCG/2 ML SDV ONE (10:27)
[2022-06-05] MEDS ORDERED: Lactated Ringers 1,000 ML IV SCH (11:15)
== END 2022-06-05 11:50 | disposition home or self-care (01) ==
LOC: MW.SDS 09:21
PROVIDERS: ATTEND Surgery
DX: Z12.11 Encounter for screening for malignant neoplasm of colon (principal); K57.30 Diverticulosis of large intestine without perforation or abscess without bleeding; I11.0 Hypertensive heart disease with heart failure; I50.9 Heart failure, unspecified; E78.00 Pure hypercholesterolemia, unspecified; L57.0 Actinic keratosis; Z88.6 Allergy status to analgesic agent; Z86.010 Personal history of colon polyps; Z79.82 Long term (current) use of aspirin; Z79.899 Other long term (current) drug therapy; Z90.49 Acquired absence of other specified parts of digestive tract; Z98.890 Other specified postprocedural states; Z72.89 Other problems related to lifestyle; Z79.84 Long term (current) use of oral hypoglycemic drugs; Z86.16 Personal history of COVID-19
CPT/HCPCS: 45378; J2370; J2704; J3010; J7120; 00812